=== PATIENT | male | born 2005 | race Caucasian/White ===

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

== ENCOUNTER → 2025-02-02 | Outpatient (CLI) | payer BC ==
[~2025-02-02] MED LIST: DICL1PAT6 TOP; DICL50TA2 PO; LIDO1ADH93 TOP
== END ==
LOC: M SOG 06:47
PROVIDERS: ATTEND Orthopaedic Surgery
DX: M25.642 Stiffness of left hand, not elsewhere classified (principal); S62.647D Nondisplaced fracture of proximal phalanx of left little finger, subsequent encounter for fracture with routine healing